=== PATIENT | male | born 1975 | race Hispanic/Latino ===

== ENCOUNTER → 2018-09-30 | Outpatient (CLI) | payer OTHER ==
--- NOTE | 2018-09-30 10:55 | NUR ---
PROCEDURE PATIENT SCHEDULED FOR BILATERAL NECK LYMPH NODE FNA. IMAGES TAKEN AND COMPARED TO PREVIOUS OUTSIDE IMAGES BY DR Jan MONTERROSO. DR Jan MONTERROSO STATED THE IMAGES SHOW NORMAL APPEARING LYMPH NODES AND RECOMMENDS 6 MONTH FOLLOW UP. PROCEDURE OUTCOME REPORTED TO SARAH PAYNE FROM DR MOHAMUD'S OFFICE.
== END | disposition home or self-care (01) ==
LOC: RAH 09:38
PROVIDERS: ATTEND Otolaryngology Plastic Surgery within the Head & Neck
DX: R22.1 Localized swelling, mass and lump, neck (principal); I88.9 Nonspecific lymphadenitis, unspecified
CPT/HCPCS: 76536